=== PATIENT | male | born 1945 | race Hispanic/Latino ===

== ENCOUNTER 2017-06-25 14:18 | Emergency (ER) | payer MEDICARE, OTHER ==
[~2017-06-25] VITALS: Ht 167.6 cm; Wt 78.0 kg
[~2017-06-25 14:18] MED LIST: CHLORDIAZEPOXIDE PO; CLOZAPINE PO
[2017-06-25] MEDS ORDERED: BELLADONNA/OPIUM 60 MG SUPP PR ONE (15:30)
[2017-06-25] MEDS ORDERED: HYDROCODONE/APAP 10MG-325MG TAB PO ONE (15:30)
[2017-06-25 16:34] LABS: BILIRUBIN,URINE NEGATIVE (NEGATIVE); COLOR,URINE YELLOW (YELLOW); KETONES,URINE NEGATIVE (NEGATIVE); LEUKOCYTE ESTERASE ,URINE TRACE (NEGATIVE); NITRITE,URINE NEGATIVE (NEGATIVE); URINE UROBILINOGEN 0.2 mg/dL (0.2 - 1)
[2017-06-25 16:35] LABS: CLARITY,URINE SL CLOUDY (CLEAR); PROTEIN,URINE DIPSTICK TRACE (NEGATIVE)
[2017-06-25 16:47] LABS: BACTERIA,URINE FEW /HPF; EPITHELIAL CELLS,URINE RARE /LPF; MUCUS,URINE MODERATE (RARE)
== END 2017-06-25 18:02 | disposition home or self-care (01) ==
LOC: ER 14:18
DX: R30.0 Dysuria (principal); N32.89 Other specified disorders of bladder
CPT/HCPCS: 81001; 99283

== ENCOUNTER → 2017-07-07 | Day surgery (SDC) | payer OTHER, MEDICARE ==
[2017-07-06 12:51] LABS: BASOPHILS % 0.2 % (0.0-1.0); HEMATOCRIT 36.9 % (38.2-49.6); LYMPHOCYTES # (AUTO) 2.4 (1.0-3.2); LYMPHOCYTES % 23.2 % (18.0-39.1); MEAN CORPUSCULAR HEMOGLOBIN 28.2 pg (28-32); MEAN CORPUSCULAR VOLUME 88.1 fL (81-99); MONOCYTES % 9.2 % (4.4-11.3); NEUTROPHILS % 67.1 % (38.7-80.0); PLATELET COUNT 209 x10e3/uL (140-360); RED BLOOD COUNT 4.19 x10e6/uL (4.3-5.7)
[2017-07-06 12:53] LABS: HEMOGLOBIN 11.8 g/dL (14.0-18.0)
--- NOTE | 2017-07-06 15:38 | Diagnostic Imaging Report ---
PROCEDURE: Frontal and lateral views of the chest. COMPARISON: Patients [facility], , CHEST SINGLE (PORTABLE), 07/04/2016, 17:55. INDICATIONS: PRE OPERATIVE CHEST X-RAY FOR PROSTATE SURGERY FINDINGS: Lines/tubes: None. Lungs: The lungs are well inflated and clear. There is no evidence of pneumonia or pulmonary edema. Pleura: There is no pleural effusion or pneumothorax. Heart and mediastinum: The heart and the mediastinum are normal. Bones: No acute bony abnormality. IMPRESSION: 1. No acute cardiopulmonary abnormalities. Kory Ortega M.D. Dictated by: Kory Ortega M.D. on 07/06/2017 at 15:38 Electronically approved by: Kory Ortega M.D. on 07/06/2017 at 15:38
[~2017-07-07] MED LIST changes: +AMPICILLIN SOD 2 GM/NS 100ML 100 ML IV ONE; +BELLADONNA/OPIUM 60 MG SUPP PR ONE; +CEFUROXIME500 MG PO; +DEXAMETHASONE SOD PHOS INJ 4 MG/ML VIAL ONE; +FENTANYL CITRATE/PF 100MCG/2 ML INJ ONE; +FLOMAX0.4 MG PO; +GENTAMICIN 120MG/NS 100ML 0 ML ONE; +GENTAMICIN IV ONE; +IOPAMIDOL 610MG/1ML 300 MG/ML VIAL IV ONE; +LEVOTHYROXINE100 MCG PO; +LIDOCAINE HCL 2% LOCAL INJ 5 ML SDV VIAL INJ ONE; +LISINOPRIL10 MG PO; +LORAZEPAM1 MG PO; +METHYLENE BLUE 1% INJ 10 ML VIAL INJ ONE; +MIDAZOLAM HCL 2 MG/2 ML VIAL ONE; +ONDANSETRON HCL INJ 2 MG/ML VIAL ONE; +OXYBUTYNIN CHLOR5 MG PO; +PROPOFOL IV EMULSION 10 MG/ML 20 ML VIAL ONE; +SEVOFLURANE INHAL SOLN 250 ML PEN BTL ONE; +TYLENOL WITH C1 EACH PO; +[UNRECOGNIZED DRUG - OTHER] IV ONE
--- OUTSIDE RECORDS SUMMARY | 2017-07-07 05:11 | XMS REPORT | Continuity of Care Document ---
Author Author [facility] Organization [facility] Address [address] [place] [address] Phone Unavailable Care Team Providers Care Starch Treating Assistant Name Role Phone MARSHALL BRUNSON MD PCP Insurance Providers Guarantor Shahid Gordon Address [address] [place] [address] Email PT DECLINED [facility] Policy Number [id number] Subscriber's Name Shahid Gordon Relationship 18 Self / Same As Patient Effective Date [address] [facility] Policy Number [id number] Subscriber's Name Shahid Gordon Relationship 18 Self / Same As Patient Advance Directives Directive Response Recorded Date/Time Does the patient have an advance directive? No 02/02/12 10:53am If yes, is advance directive on file with [facility]? No 02/02/12 10:53am If not on file with [facility] will patient provide a copy? No 02/02/12 10:53am Do you have a Directive to Physician? No 06/25/17 4:27pm Do you have a Medical Power of Owner/Operator? No 06/25/17 4:27pm Do you have an out of hospital Do Not Resuscitate Order? No 06/25/17 4:27pm Do you have any special needs we should be aware of? No 06/25/17 4:27pm Do you have a support person here with you today? Yes 06/25/17 4:27pm Did patient receive Notice of Privacy Practices? Yes 06/25/17 4:27pm Did patient receive patient rights and responsibilities? Yes 06/25/17 4:27pm Problems No problem information available. Medications Current Home Medications Medication Dose Units Route Directions Days Qty Instructions Start Date Chlordiazepoxide Hcl (Librium) 10 Mg Capsule 10 Mg Oral Daily Clozapine 100 Mg Tablet 100 Mg Oral Daily Social History Smoking Status Start Date Stop Date Never Smoker Hospital Discharge Instructions No hospital discharge instruction information available. Plan of Care Discharge Date 06/25/17 6:02pm Disposition HOME, SELF-CARE Condition at Discharge Stable Instructions/Education Provided Abdominal Pain - Adult Forms Provided Work/School Excuse Prescriptions See Medication Section Referrals MARSHALL BRUNSON MD Address: [address] [place] [id number] Additional Instructions/Education FOLLOW UP WITH PCP TAKE MEDS DIRECTED Functional Status No functional status information available. Allergies, Adverse Reactions, Alerts No known allergies. Immunizations No immunization information available. Vital Signs Acute Vital Signs Vital Response Date/Time Height 5 ft 6 in 06/25/2017 3:12pm Weight 172 lb 06/25/2017 3:12pm Body Mass Index 27.8 kg/m^2 06/25/2017 3:12pm Results Laboratory Results Test Name Result Units Flags Reference Collection Date/Time Result Date/ Time Comments Urine Color YELLOW YELLOW 06/25/2017 4:18pm 06/25/2017 4:35pm Urine Clarity SL CLOUDY H CLEAR 06/25/2017 4:18pm 06/25/2017 4:35pm Urine Specific [place] 1.020 1.010-1.025 06/25/2017 4:18pm 2017 4:35pm Urine pH 6 5 - 7 06/25/2017 4:18pm 06/25/2017 4:35pm Urine Leukocyte Esterase TRACE H NEGATIVE 06/25/2017 4:18pm 2017 4:35pm Urine Nitrite NEGATIVE NEGATIVE 06/25/2017 4:18pm 06/25/2017 4:35pm Urine Protein TRACE H NEGATIVE 06/25/2017 4:18pm 06/25/2017 4:35pm Urine Glucose (UA) NEGATIVE NEGATIVE 06/25/2017 4:18pm 06/25/2017 4: 35pm Urine Ketones NEGATIVE NEGATIVE 06/25/2017 4:18pm 06/25/2017 4:35pm Urine Urobilinogen 0.2 mg/dL 0.2 - 1 06/25/2017 4:18pm 06/25/2017 4: 35pm Urine Bilirubin NEGATIVE NEGATIVE 06/25/2017 4:18pm 06/25/2017 4: 35pm Urine Blood NEGATIVE NEGATIVE 06/25/2017 4:18pm 06/25/2017 4:35pm Urine WBC 6-10 /HPF H 0-5 06/25/2017 4:18pm 06/25/2017 4:47pm Urine RBC NONE /HPF 0-5 06/25/2017 4:18pm 06/25/2017 4:47pm Urine Bacteria FEW /HPF NONE 06/25/2017 4:18pm 06/25/2017 4:47pm Urine Epithelial Cells RARE /LPF NONE 06/25/2017 4:18pm 06/25/2017 4: 47pm Urine Mucus MODERATE H RARE 06/25/2017 4:18pm 06/25/2017 4:47pm Procedures No procedure information available. Encounters Encounter Location Arrival/Admit Date Discharge/Depart Date Attending Provider Departed Emergency Room [facility] 06/25/17 2:18pm 6:02pm VAN GRIMM MD
--- OUTSIDE RECORDS SUMMARY | 2017-07-07 05:11 | XMS REPORT ---
[facility] Address Unknown Phone Unavailable Care Team Providers Care Hair Clipper Power Name Role Phone CHARO FRANCO Unavailable Unavailable Problems This patient has no known problems. Allergies, Adverse Reactions, Alerts This patient has no known allergies or adverse reactions. Medications This patient has no known medications. Results Test Description Test Time Test Comments Text Results Atomic Results Result Comments CHEST 2 VIEWS [place] [address] Patient Name: SHAHID DOYLE MR #: [id number] : 1945 Age/Sex: 71/M Req #: [id number] Adm Physician: Ordered by: CHARO FRANCO MD Report #: [id number] Location: OR Room/Bed: Procedure: [id number] DX/ CHEST 2 VIEWS Exam Date: 07/06/17 Exam Time: 1500 REPORT STATUS: Signed PROCEDURE: Frontal and lateral views of the chest. COMPARISON: [facility], DX, CHEST SINGLE (PORTABLE), 07/04/2016, 17:55. INDICATIONS: PRE OPERATIVE CHEST X-RAY FOR PROSTATE SURGERY FINDINGS: Lines/tubes: None. Lungs: The lungs are well inflated and clear. There is no evidence of pneumonia or pulmonary edema. Pleura: There is no pleural effusion or pneumothorax. Heart and mediastinum: The heart and the mediastinum are normal. Bones: No acute bony abnormality. IMPRESSION: 1. No acute cardiopulmonary abnormalities. Marshall Hassan M.D. Dictated by : Marshall Hassan M.D. on 07/06/2017 at 15:38 Electronically approved by: Marshall Hassan M.D. on 07/06/2017 at 15:38 Dictated By : MARSHALL HASSAN MD [id number] Transcribed By: KIMBERLY on 07/06/17 1538 COPY TO: CHARO FRANCO MD
--- NOTE | 2017-07-08 14:13 | Operative Report ---
DATE OF PROCEDURE: July 07, 2017 PREOPERATIVE DIAGNOSIS: Obstructive benign prostatic hypertrophy. POSTOPERATIVE DIAGNOSIS: Obstructive benign prostatic hypertrophy. OPERATIONS PERFORMED 1. Cystourethroscopy with transurethral resection of the prostate (staged procedure performed for the obstructive benign prostatic hypertrophy). 2. Interpretation of cystography. 3. Supervision of fluoroscopy, no radiologist present. ANESTHESIA: General. COMPLICATIONS: None. CLINICAL SUMMARY: Valdemar Gordon is a 71-year-old man who was found to have urinary retention. The patient has had a longstanding urinary force of stream. He had retention for over 1000 mL in the office. He did have uroflowmetry performed and did have some degree of bladder or at least voiding function. He has also had some urge incontinence and uses pads. He was also noted to have an elevated PSA in December 2016. He was also found to have a urinary tract infection in combination with his urinary obstruction and was placed on antibiotics, which he is still taking. Options were discussed with the patient and his sister and they elected to proceed. The patient also had a cystoscopy performed in the office and this revealed kissing lateral lobes with severe visual obstruction and a long prostatic urethra. The patient is brought for transurethral resection of the prostate and planned cystoscopy and retrogrades. He is aware of the risks of bleeding, infection, injury to adjacent structures, incontinence, impotence, failure of the procedure, persistent urinary retention, and he elected to proceed. OPERATIVE PROCEDURE IN DETAIL: Informed consent was verified. Valdemar Gordon was properly identified, taken to the operating room, and placed on the cystoscopy table in supine position. Anesthesia was uneventfully begun. The patient then carefully and gently repositioned in the dorsal lithotomy position with all pressure points well padded. His genitalia were prepared and draped in the usual sterile fashion. A 22.5-Arabic cystoscope sheath with visual obturator in place was atraumatically inserted in patient's urethra. It was guided down the relatively unremarkable urethra through the sphincteric region and into the prostate bed, which was significant for obstructive BPH with kissing lateral lobes. We entered the patient's bladder and it was drained. There were heavy trabeculations noted. There was a band of trabeculations that we believe is the location of interureteric ridge and we carefully and repeatedly scoped this area and could not locate the ureteral orifices. Methylene blue as well as Lasix was given by the anesthesiologist and we still did not see any methylene blue. There were no suspicious lesions. There were no stones. We utilized the plasma button electrode. The resectoscope was atraumatically placed and we proceeded with vaporizing the prostate, but never past the verumontanum and down the surgical capsule circumferentially. Excellent hemostasis was achieved with pinpoint electrocautery. We now that we have given quite a bit of time for the methylene blue with Lasix to function again performed panendoscopy several times and we were unable to locate the ureteral orifices. The resectoscope was withdrawn. Marina catheter was placed. It was irrigated to and fro to ensure work properly. Contrast was injected and we performed cystography. INTERPRETATION OF CYSTOGRAPHY: There appeared to be a diverticulum present off of the dome of the bladder and cephalad to the Marina catheter balloon. The Marina catheter balloon was within the bladder in an appropriate position. There was no evidence of vesicoureteric reflux. A belladonna and opium suppository was placed revealing a 40 g prostate that was smooth, non-fluctuant, and without any nodules and the patient was uneventfully reversed from anesthesia and taken to recovery room in stable condition. There were no complications during the procedure. He tolerated the procedure well. Explicit postoperative instructions were given. We will follow the patient up in the office, at which point in time we will perform uroflowmetry and bladder sonography. In addition, we added additional penicillin to the patient's medication milieu. Job#: [id number] VAS cc:Dr. Kory Vega
== END | disposition home or self-care (01) ==
LOC: OR 05:07
PROVIDERS: ATTEND Urology
DX: N40.1 Benign prostatic hyperplasia with lower urinary tract symptoms (principal); N13.8 Other obstructive and reflux uropathy; N39.41 Urge incontinence; R33.8 Other retention of urine; R35.1 Nocturia; R39.14 Feeling of incomplete bladder emptying; N39.0 Urinary tract infection, site not specified; N32.89 Other specified disorders of bladder; I10 Essential (primary) hypertension; E03.9 Hypothyroidism, unspecified; F20.9 Schizophrenia, unspecified; F41.9 Anxiety disorder, unspecified; Z01.810 Encounter for preprocedural cardiovascular examination; Z01.812 Encounter for preprocedural laboratory examination; Z01.818 Encounter for other preprocedural examination
CPT/HCPCS: 36415; 52648; 71046; 74430; 85025; 93005; C1758; J1100; J1580; J2001; J2250; J2405; Q9967

== ENCOUNTER → 2018-07-11 | Day surgery (SDC) | payer MEDICARE ==
[2018-07-09 14:28] LABS: BASOPHILS % 0.3 % (0.0-1.0); EOSINOPHILS # (AUTO) 0.1 (0.0-0.4); EOSINOPHILS % 1.5 % (0.0-6.0); HEMATOCRIT 42.4 % (38.2-49.6); HEMOGLOBIN 13.6 g/dL (14.0-18.0); LYMPHOCYTES # (AUTO) 2.4 (1.0-3.2); LYMPHOCYTES % 34.4 % (18.0-39.1); MEAN CORPUSCULAR HEMOGLOBIN 29.4 pg (28-32); MEAN CORPUSCULAR HGB CONC 32.1 g/dL (31-35); MEAN CORPUSCULAR VOLUME 91.6 fL (81-99); MONOCYTES # (AUTO) 0.5 (0.2-0.8); MONOCYTES % 7.7 % (4.4-11.3); NEUTROPHILS # (AUTO) 3.9 (2.1-6.9); NEUTROPHILS % 55.8 % (38.7-80.0); PLATELET COUNT 184 x10e3/uL (140-360); RED BLOOD COUNT 4.63 x10e6/uL (4.3-5.7); RED CELL DISTRIBUTION WIDTH 13.2 % (11.7-14.4)
--- NOTE | 2018-07-09 14:46 | Diagnostic Imaging Report ---
EXAMINATION: PA and lateral views of the chest. COMPARISON: 07/06/2017 CLINICAL HISTORY: Preoperative study for urological procedure DISCUSSION: Lines/tubes: None. Lungs: The lungs are well inflated and clear. There is no evidence of pneumonia or pulmonary edema. Pleura: There is no pleural effusion or pneumothorax. Heart and mediastinum: The cardiomediastinal silhouette is normal. Bones and soft tissues: No acute bony abnormalities. Degenerative changes in the thoracic spine IMPRESSION: No acute cardiopulmonary abnormalities. Signed by: Dr. Jair Bray M.D. on 07/09/2018 2:43 PM
[~2018-07-11] MED LIST changes: -AMPICILLIN SOD 2 GM/NS 100ML 100 ML IV ONE; +APPLE CIDAR VINEGAR PO; +CEFTRIAXONE SOD 1 GM/NS 50 ML 50 ML IV ONE; -DEXAMETHASONE SOD PHOS INJ 4 MG/ML VIAL ONE; -FENTANYL CITRATE/PF 100MCG/2 ML INJ ONE; -GENTAMICIN 120MG/NS 100ML 0 ML ONE; +GENTAMICIN 80MG/NS 100 ML 100 ML IV ONE; -GENTAMICIN IV ONE; +MEPERIDINE HCL INJ 25 MG/ML VIAL ONE; -METHYLENE BLUE 1% INJ 10 ML VIAL INJ ONE; -ONDANSETRON HCL INJ 2 MG/ML VIAL ONE; +ONDANSETRON HCL INJ 2MG/ML 2ML 2 MG/ML VIAL ONE; +VIT D PO; -[UNRECOGNIZED DRUG - OTHER] IV ONE
[2018-07-11 13:30] VITALS: BP 132/83
--- NOTE | 2018-08-13 17:00 | Operative Report ---
DATE OF PROCEDURE: 07/11/2018 SURGEON: Coleman Moscoso MD PREOPERATIVE DIAGNOSES: 1. Bladder neck obstruction. 2. Urinary tract infections. POSTOPERATIVE DIAGNOSES: 1. Bladder neck obstruction. 2. Urinary tract infections. OPERATION PERFORMED: 1. Cystourethroscopy with bilateral ureteral catheterization and retrograde urethrography (separate procedure performed for the urine tract infection. 2. Interpretation of retrograde ureteropyelography. 3. Supervision of fluoroscopy, no radiologist present. 4. Cystourethroscopy with transurethral resection of the bladder neck. ANESTHESIA: General. COMPLICATIONS: None. CLINICAL SUMMARY: Valdemar Gordon is a 72-year-old man, who underwent a transurethral resection of the prostate in June of 2017. The patient had a history of urinary retention. His residuals are that measured approximately 250 to 300 mL. Cystoscopy in the office revealed a bladder neck contracture. He is aware of the risks of bleeding, infection, injury to adjacent structures, need for additional procedures and elected to proceed. OPERATIVE PROCEDURE IN DETAIL: Informed consent was verified. Valdemar Gordon was properly identified and taken to the operating room, placed on the cystoscopy table in supine position. Anesthesia was uneventfully begun. The patient was then carefully gently repositioned in the dorsal lithotomy position. The left foot was well padded. His genitalia were prepared and draped in usual sterile fashion. The cystoscope sheath with the visual obturator in place was atraumatically inserted into the patient's urethra and was guided down unremarkably. Urethra passed the unremarkable sphincteric region through the prostate bed, which was wide open, status post transurethral resection of the prostate with complete re-epithelialization. There was not a contracture and scarring at the level of the bladder neck. We popped through the bladder neck into the patient's bladder, which exhibited trabeculations throughout, but no tumors, no stones, no diverticula. No suspicious mucosal lesions were identified. Ureteral catheter was used to cannulate each ureter and retrograde ureteropyelography was performed. Interpretation of retrograde ureteropyelography: Contrast was instilled in retrograde fashion bilaterally. There were no tumors, no stones, and no diverticula. Unobstructed drainage was observed bilaterally fluoroscopically. The Bugbee electrode was then utilized to vaporize the bladder neck through the scar tissue at the 5 o"clock and 7 o'clock positions. This resulted in a wide open bladder neck with excellent hemostasis. We made sure to vaporize right through the entire thickness of the scar tissue to friable non-scarred tissue below. The cystoscope was withdrawn. Marina catheter was placed. A belladonna and opium suppository were placed revealing 40 g prostate that was smooth, non-fluctuant without any nodules. The patient was then uneventfully reversed from anesthesia and taken to recovery in stable condition. There were no complications at the end of procedure. He tolerated the procedure well. Expressive postop instructions were given for the patient in the office. We will follow the patient up in the office. We plan to perform a uroflowmetry and bladder ultrasonography at that time. Coleman MD [place] /[id number] cc: Dr. Ajay Solares
== END | disposition home or self-care (01) ==
LOC: OR 09:29
PROVIDERS: ATTEND Urology
DX: N32.0 Bladder-neck obstruction (principal); N39.0 Urinary tract infection, site not specified; Z98.890 Other specified postprocedural states; N32.89 Other specified disorders of bladder; I10 Essential (primary) hypertension; F20.9 Schizophrenia, unspecified; Z01.810 Encounter for preprocedural cardiovascular examination; Z01.812 Encounter for preprocedural laboratory examination; Z01.818 Encounter for other preprocedural examination
CPT/HCPCS: 36415; 52005; 52500; 71046; 74420; 85025; 93005; C1758; J0696; J1580; J2001; J2175; J2250; J2405; J2704; Q9967

== ENCOUNTER → 2019-06-10 | Outpatient (CLI) | payer OTHER ==
[~2019-06-10] MED LIST changes: -BELLADONNA/OPIUM 60 MG SUPP PR ONE; -CEFTRIAXONE SOD 1 GM/NS 50 ML 50 ML IV ONE; -GENTAMICIN 80MG/NS 100 ML 100 ML IV ONE; -IOPAMIDOL 610MG/1ML 300 MG/ML VIAL IV ONE; -LIDOCAINE HCL 2% LOCAL INJ 5 ML SDV VIAL INJ ONE; -MEPERIDINE HCL INJ 25 MG/ML VIAL ONE; -MIDAZOLAM HCL 2 MG/2 ML VIAL ONE; -ONDANSETRON HCL INJ 2MG/ML 2ML 2 MG/ML VIAL ONE; -PROPOFOL IV EMULSION 10 MG/ML 20 ML VIAL ONE; -SEVOFLURANE INHAL SOLN 250 ML PEN BTL ONE
--- NOTE | 2019-06-10 15:26 | Diagnostic Imaging Report ---
EXAM: US ABDOMEN COMPLETE DATE: 06/10/2019 1:47 PM INDICATION: Abdominal pain COMPARISON: None TECHNIQUE: Transverse and longitudinal ross scale and color doppler sonographic images of the upper abdomen were obtained. FINDINGS: LIVER 12.8 cm in the right midclavicular line. Increased echogenicity of the liver with normal contour, no masses. SPLEEN 10.8 cm in maximum diameter. Normal echogenicity, no masses. GALLBLADDER Nonmobile 2 mm hyperechoic focus along the gallbladder wall without associated posterior acoustic shadowing likely represents a small polyp. No gallbladder wall thickening, distension, stone, or pericholecystic fluid. Negative reported sonographic Mitchell's sign. The gallbladder wall measures 2mm BILE DUCTS No intra nor extra-hepatic biliary dilation. Common bile duct measures mm PANCREAS: Visualized portions are normal. RIGHT KIDNEY: 10.3 cm Echogenicity: Normal Collecting System: No hydronephrosis Stones: None Cyst/Mass: None LEFT KIDNEY: 11.5 cm Echogenicity: Normal Collecting System: No hydronephrosis Stones: None Cyst/Mass: None VESSELS: Aorta: Visualized portions are within normal size limits Inferior Vena Cava: Visualized portions are normal Main Portal Vein: 0.8 cm, normal size with hepatopetal flow. FREE FLUID: None IMPRESSION: Diffuse hepatic steatosis. 2 mm gallbladder polyp. No cholelithiasis or sonographic evidence of cholecystitis. No renal calculi or hydronephrosis. Signed by: Calixto Maldonado MD on 06/10/2019 3:24 PM
== END ==
LOC: US 13:37
PROVIDERS: ATTEND Internal Medicine
DX: R10.84 Generalized abdominal pain (principal); K43.9 Ventral hernia without obstruction or gangrene
CPT/HCPCS: 76700

== ENCOUNTER 2019-06-11 19:18 | Inpatient (IN) | payer MEDICARE, OTHER ==
[~2019-06-11] VITALS: Ht 167.6 cm; Wt 78.2 kg
[2019-06-11] MEDS ORDERED: SODIUM CHLORIDE 0.9% 1000ML 1,000 ML IV STA (20:36)
[2019-06-11] MEDS ORDERED: MORPHINE SULFATE INJ 4 MG/ML INJ 1ML IV PRN (20:45)
[2019-06-11] MEDS ORDERED: ACETAMINOPHEN 325 MG TAB PO ONE (20:45)
[2019-06-11 21:06] LABS: BASOPHILS % 0.2 % (0.0-1.0); HEMATOCRIT 40.2 % (38.2-49.6); HEMOGLOBIN 13.1 g/dL (14.0-18.0); LYMPHOCYTES # (AUTO) 2.8 (1.0-3.2); LYMPHOCYTES % 17.2 % (18.0-39.1); MEAN CORPUSCULAR HGB CONC 32.6 g/dL (31-35); MONOCYTES # (AUTO) 1.4 (0.2-0.8); MONOCYTES % 8.3 % (4.4-11.3); NEUTROPHILS # (AUTO) 12.1 (2.1-6.9); NEUTROPHILS % 73.9 % (38.7-80.0); PLATELET COUNT 258 x10e3/uL (140-360); RED BLOOD COUNT 4.37 x10e6/uL (4.3-5.7); RED CELL DISTRIBUTION WIDTH 13.1 % (11.7-14.4)
[2019-06-11] MEDS: PIPER-TAZ 3.375 GM 50 ML IV SCH (21:13)
[2019-06-11 21:30] LABS: ALBUMIN 4.4 g/dL (3.5-5.0); ALBUMIN/GLOBULIN RATIO 1.3 (0.8-2.0); ANION GAP 15.5 mmol/L (8-16); CALCIUM 9.2 mg/dL (8.4-10.2); CREATININE, SERUM 1.39 mg/dL (0.72-1.25); POTASSIUM 3.5 mmol/L (3.5-5.1)
--- NOTE | 2019-06-11 22:29 | Diagnostic Imaging Report ---
EXAMINATION: CT of the abdomen and pelvis with contrast. TECHNIQUE: Spiral CT images of the abdomen and pelvis were performed from the lung bases to the lesser trochanters after the intravenous administration of approximately 20 cc of Isovue-370, at which point the patient's intravenous catheter extravasated. Coronal and sagittal reformatted images were obtained. COMPARISON: Abdominal ultrasound 06/10/2019 CLINICAL HISTORY:Right lower quadrant pain DISCUSSION: ABDOMEN/PELVIS: LOWER THORAX:Bandlike atelectasis or fibrotic change in the lingula and right middle lobe. No pleural or pericardial effusion. HEPATOBILIARY: Hepatic parenchyma is diffusely hypoattenuating compatible with steatosis. Subcentimeter hypoattenuating lesion in segment 5 is too small to further characterize but likely to represent a small cyst. No intra-or extrahepatic biliary ductal dilation. The gallbladder is unremarkable. SPLEEN: No splenomegaly. Small splenule adjacent to the anterior margin of the spleen. PANCREAS: No focal masses or ductal dilatation. ADRENALS: No adrenal nodules. KIDNEYS/URETERS: No hydronephrosis, calculi, or solid or cystic mass lesions. PELVIC ORGANS/BLADDER: Small diverticulum projecting from the right side of the urinary bladder. The urinary bladder is distended and otherwise unremarkable. Probable postsurgical changes of TURP. PERITONEUM/RETROPERITONEUM: No ascites or pneumoperitoneum. LYMPH NODES: No pelvic sidewall, retroperitoneal, or mesenteric lymphadenopathy. VESSELS: Focal ectasia of the infrarenal abdominal aorta to a maximum of 2.5 cm in caliber. Atherosclerotic calcifications elsewhere throughout the abdominal aorta and iliac arterial systems. GI TRACT: The large bowel shows no evidence of distention or wall thickening. Gas and fecal material is noted throughout. The appendix is not definitively identified; however, there is no right lower quadrant inflammatory change. The stomach is collapsed with prominent rugal folds. No small bowel dilatation to suggest obstruction. BONES AND SOFT TISSUE: No osseous destructive lesions. No focal soft tissue abnormalities. IMPRESSION: No acute intra-abdominal or pelvic CT abnormalities. The appendix is not identified; however, no right lower quadrant inflammation to suggest acute appendicitis. Distended urinary bladder with a small diverticulum along the right side likely a consequence of chronic bladder outlet obstruction given postsurgical findings of transurethral prostatectomy. Incidental findings include hepatic steatosis and atherosclerotic vascular disease with focal ectasia of the infrarenal abdominal aorta. Signed by: Dr. Jair Bray M.D. on 06/11/2019 10:26 PM
[2019-06-11] MEDS ORDERED: SODIUM CHLORIDE 0.9% 50ML 50 ML ONE (22:42)
[2019-06-11] MEDS ORDERED: IOPAMIDOL 370 MG/ML 200 ML INFUS..BTL INJ ONE (22:42)
[2019-06-11 23:15] VITALS: BP 113/71
--- NOTE | 2019-06-11 23:56 | NUR ---
Patient received via stretcher from ER accompanied by sister. MAURI x 3. Patient had complaints of abdominal pain (06/24). Respirations even and non-labored. Admission history obtained. Initial physical assessment performed. Patient oriented to room, call light and plan of care. Fall precautions implemented. Patient informed of NPO status after midnight and to call for assistance when needed. Call light within reach.
[2019-06-12] VITALS (7 sets, daily range): BP systolic 113–133; BP diastolic 55–73
--- NOTE | 2019-06-12 02:45 | NUR ---
Patient complained of abdominal pain (10/24). Dr. Jennie Solares notified. New order received for Morphine 1 mg Q6H PRN.
--- NOTE | 2019-06-12 03:00 | NUR ---
Blood sample sent to lab for analysis of lactic acid levels.
[2019-06-12] MEDS ORDERED: SODIUM CHLORIDE 0.9% 250ML 250 ML ONE (03:10)
[2019-06-12 03:16] LABS: BASOPHILS % 0.1 % (0.0-1.0); EOSINOPHILS # (AUTO) 0.1 (0.0-0.4); EOSINOPHILS % 0.5 % (0.0-6.0); HEMATOCRIT 32.3 % (38.2-49.6); HEMOGLOBIN 10.4 g/dL (14.0-18.0); LYMPHOCYTES # (AUTO) 2.9 (1.0-3.2); LYMPHOCYTES % 21.5 % (18.0-39.1); MEAN CORPUSCULAR HEMOGLOBIN 29.5 pg (28-32); MEAN CORPUSCULAR HGB CONC 32.2 g/dL (31-35); MEAN CORPUSCULAR VOLUME 91.5 fL (81-99); MONOCYTES # (AUTO) 1.3 (0.2-0.8); MONOCYTES % 9.3 % (4.4-11.3); NEUTROPHILS # (AUTO) 9.3 (2.1-6.9); NEUTROPHILS % 68.2 % (38.7-80.0); RED BLOOD COUNT 3.53 x10e6/uL (4.3-5.7); RED CELL DISTRIBUTION WIDTH 13.2 % (11.7-14.4)
[2019-06-12] MEDS: PIPER-TAZ 3.375 GM 50 ML IV SCH ×4 (03:17→21:41)
[2019-06-12] MEDS: MORPHINE SULFATE 2 MG/ML SYR 1ML IV PRN ×2 (03:17→09:19)
[2019-06-12 03:30] LABS: ALANINE AMINOTRANSFERASE 12 IU/L (0-55); ALBUMIN/GLOBULIN RATIO 1.2 (0.8-2.0); ALKALINE PHOSPHATASE 66 IU/L (40-150); ANION GAP 9.6 mmol/L (8-16); BLOOD UREA NITROGEN 18 mg/dL (7-26); BUN/CREATININE RATIO 16 (6-25); CARBON DIOXIDE 24 mmol/L (22-29); CHLORIDE 107 mmol/L (98-107); CREATININE, SERUM 1.15 mg/dL (0.72-1.25); EST GLOMERULAR FILTRATION RATE > 60 ML/MIN (60-); GLUCOSE 128 mg/dL (74-118); POTASSIUM 3.6 mmol/L (3.5-5.1); SODIUM 137 mmol/L (136-145)
[2019-06-12 03:33] LABS: ALBUMIN 3.1 g/dL (3.5-5.0); CALCIUM 7.5 mg/dL (8.4-10.2)
[2019-06-12 03:34] LABS: PLATELET COUNT 221 x10e3/uL (140-360)
[2019-06-12] MEDS ORDERED: FLOMAX0.4 MG PO (03:35)
[2019-06-12] MEDS ORDERED: OMEPRAZOLE40 MG PO (03:35)
[2019-06-12] MEDS ORDERED: LEVOTHYROXINE75 MCG PO (03:35)
[2019-06-12] MEDS ORDERED: LEVAQUIN500 MG PO (03:35)
--- NOTE | 2019-06-12 06:49 | NUR ---
Bed-side shift report given to oncoming nurse.
--- NOTE | 2019-06-12 07:00 | NUR ---
RECEIVED BEDSIDE SHIFT REPORT FROM ROUGE PRESSER RN. PT DENIES NEEDS AT THIS TIME.
[2019-06-12 07:29] LABS: CLARITY,URINE CLOUDY (CLEAR); COLOR,URINE YELLOW (YELLOW)
[2019-06-12 07:30] LABS: KETONES,URINE 1+ (NEGATIVE); LEUKOCYTE ESTERASE ,URINE MODERATE (NEGATIVE); NITRITE,URINE NEGATIVE (NEGATIVE); PROTEIN,URINE DIPSTICK 2+ (NEGATIVE); URINE UROBILINOGEN 1 mg/dL (0.2 - 1)
[2019-06-12 07:31] LABS: BILIRUBIN,URINE NEGATIVE (NEGATIVE)
[2019-06-12 07:45] LABS: WBC,URINE (MAN) >50 /HPF (0-5)
[2019-06-12 07:46] LABS: BACTERIA,URINE RARE /HPF; EPITHELIAL CELLS,URINE RARE /LPF; RBC,URINE 0-5 /HPF (0-5)
[2019-06-12] MEDS: ACETAMINOPHEN 325 MG TAB PO PRN (14:40)
--- NOTE | 2019-06-12 14:45 | NUR ---
Visit made by the Spiritual Care Department Pastoral Visitor, Christine Au. PV provided pastoral presence, hospitality, and supportive listening. Pastoral Visitor informed pt/family of the scope of Book[employer] Chief Services and availability. PARVIN DIXON [employer] Management Professor Spiritual Care Department O: [phone]
--- NOTE | 2019-06-12 16:33 | History and Physical ---
CHIEF COMPLAINT: He is a 73-year-old male patient of mine, presented to the emergency room with a complaint of abdominal pain and fever. HISTORY OF PRESENT ILLNESS: Mr. Heidi Aldrich is a 73-year-old male patient with history of psychosis, schizophrenia, hypertension, hypothyroidism, and previous prostatic problem. Presented as outpatient earlier with the lower abdominal pain and patient was sent for the renal ultrasound and given antibiotics, but the patient was not improving and the patient was having more pain. The patient then came to the emergency room and subsequently the patient was admitted because of the sepsis. The patient was given outpatient Levaquin. MEDICATIONS: Other medication history the patient was on levothyroxine, lisinopril, lorazepam, omeprazole, tamsulosin and clozapine. ALLERGIES: NO KNOWN DRUG ALLERGIES. PAST MEDICAL HISTORY: Hypertension, hypothyroidism, UTI, schizophrenia. SOCIAL HISTORY: Denies smoking. Denies using alcohol. REVIEW OF SYSTEMS: The patient complained of lower abdominal pain. The patient is a poor historian and not able to give any detailed review of system examination. PHYSICAL EXAMINATION: GENERAL: He is an elderly male patient lying in bed, not in any acute distress. VITAL SIGNS: Temperature 99, pulse rate 88, blood pressure 138/64. Respiration rate 20. HEENT: Normocephalic, atraumatic. NECK: No JVD. No lymphadenopathy. LUNGS: Bilateral equal fair entry. No rales. No rhonchi. HEART: S1, S2 regular. ABDOMEN: Soft. Bowel sounds present. Lower abdomen mild tenderness present. NEUROLOGIC: A and O. EXTREMITIES: No edema. LABORATORY DATA: Revealed white blood count 16,000. ADMITTING IMPRESSION DIAGNOSES: 1. Urinary tract infection with sepsis. 2. Urosepsis. 3. Hypertension. 4. Hyperlipidemia. 5. Hypothyroidism. 6. Arthritis. 7. Schizophrenia. PLAN: The patient will be admitted with above diagnoses. We will treat patient with IV antibiotic Zosyn. We will discontinue morphine that was given by the emergency room. MD DIANE Morgan/[facility] /[id number]
--- NOTE | 2019-06-12 16:50 | NUR ---
BLADDER SCAN REVEALED 400 ML RESIDUAL POST VOID.
--- NOTE | 2019-06-12 16:53 | NUR ---
REYES CATHETER INSERTED USING 18 GREEK COUDEA. PT TOLERATED. REYES DRAINING TO BEDSIDE BAG. Addendum: 06/13/19 at 0921 by Humberto Taveras RN POST PLACEMENT URINE WAS MEASURED AT 780ML.
[2019-06-12] MEDS: NON-FORMULARY MEDICATION (Clozapine 200 MG) PO SCH (21:00)
[2019-06-12] MEDS: LORAZEPAM 1 MG TAB PO SCH (21:42)
[2019-06-12] MEDS: TAMSULOSIN HCL 0.4 MG CAP PO SCH (21:42)
[2019-06-13] VITALS (8 sets, daily range): BP systolic 102–153; BP diastolic 62–79
[2019-06-13] MEDS: PIPER-TAZ 3.375 GM 50 ML IV SCH ×4 (03:15→20:21)
[2019-06-13 05:10] LABS: BASOPHILS % 0.2 % (0.0-1.0); HEMATOCRIT 32.2 % (38.2-49.6); HEMOGLOBIN 10.4 g/dL (14.0-18.0); LYMPHOCYTES % 18.4 % (18.0-39.1); MEAN CORPUSCULAR HEMOGLOBIN 29.6 pg (28-32); MEAN CORPUSCULAR HGB CONC 32.3 g/dL (31-35); MEAN CORPUSCULAR VOLUME 91.7 fL (81-99); MONOCYTES # (AUTO) 0.9 (0.2-0.8); MONOCYTES % 8.4 % (4.4-11.3); NEUTROPHILS # (AUTO) 7.9 (2.1-6.9); NEUTROPHILS % 72.7 % (38.7-80.0); PLATELET COUNT 257 x10e3/uL (140-360); RED BLOOD COUNT 3.51 x10e6/uL (4.3-5.7); RED CELL DISTRIBUTION WIDTH 13.2 % (11.7-14.4)
[2019-06-13 05:32] LABS: ALANINE AMINOTRANSFERASE 14 IU/L (0-55); ALKALINE PHOSPHATASE 67 IU/L (40-150); ANION GAP 9.5 mmol/L (8-16); BLOOD UREA NITROGEN 19 mg/dL (7-26); BUN/CREATININE RATIO 18 (6-25); CALCIUM 7.8 mg/dL (8.4-10.2); CARBON DIOXIDE 22 mmol/L (22-29); CHLORIDE 106 mmol/L (98-107); CREATININE, SERUM 1.05 mg/dL (0.72-1.25); EST GLOMERULAR FILTRATION RATE > 60 ML/MIN (60-); GLUCOSE 124 mg/dL (74-118); POTASSIUM 3.5 mmol/L (3.5-5.1); SODIUM 134 mmol/L (136-145)
[2019-06-13] MEDS: LEVOTHYROXINE SODIUM 75 MCG TAB PO SCH (06:10)
--- NOTE | 2019-06-13 07:00 | NUR ---
RECEIVED BEDSIDE SHIFT REPORT FROM YARN REWINDER RN. PT DENIES NEEDS AT THIS TIME.
[2019-06-13] MEDS: LISINOPRIL 10 MG TAB PO SCH (08:37)
[2019-06-13] MEDS: PANTOPRAZOLE SOD 40 MG TABEC PO SCH (08:38)
[2019-06-13] MEDS ORDERED: POTASSIUM CHLORIDE 10MEQ EA PO NR (18:30)
[2019-06-13] MEDS: NON-FORMULARY MEDICATION (Clozapine 200 MG) PO SCH (20:21)
[2019-06-13] MEDS: TAMSULOSIN HCL 0.4 MG CAP PO SCH (20:22)
[2019-06-13] MEDS: ACETAMINOPHEN 325 MG TAB PO PRN (20:22)
[2019-06-13] MEDS: LORAZEPAM 1 MG TAB PO SCH (20:22)
[2019-06-14] VITALS: BP 108/56
[2019-06-14] MEDS: PIPER-TAZ 3.375 GM 50 ML IV SCH ×2 (03:15→09:17)
[2019-06-14 04:00] VITALS: BP 94/52
[2019-06-14] MEDS: LEVOTHYROXINE SODIUM 75 MCG TAB PO SCH (05:42)
[2019-06-14 06:22] LABS: ANION GAP 8.8 mmol/L (8-16); BLOOD UREA NITROGEN 16 mg/dL (7-26); BUN/CREATININE RATIO 15 (6-25); CARBON DIOXIDE 26 mmol/L (22-29); CHLORIDE 108 mmol/L (98-107); CREATININE, SERUM 1.06 mg/dL (0.72-1.25); EST GLOMERULAR FILTRATION RATE > 60 ML/MIN (60-); GLUCOSE 111 mg/dL (74-118); POTASSIUM 3.8 mmol/L (3.5-5.1); SODIUM 139 mmol/L (136-145)
--- NOTE | 2019-06-14 07:00 | NUR ---
BEDSIDE SHIFT REPORT RECEIVED FROM THE SPRAYER INSECTICIDE RN. EDUCATED PT ABOUT FALL PRECAUTIONS. PT VERBALIZED UNDERSTANDING. CALL LIGHT WITH IN EASY REACH. INSTRUCTED PT TO USE CALL LIGHT FOR ALL THE NEEDS. BED IS LOW AND LOCKED. SIDE RAILS X2. BED ALARM IS ON. PT DENIES NEEDS AT THIS TIME.
[2019-06-14 08:00] VITALS: BP 116/53
[2019-06-14 08:36] VITALS: BP 116/53
--- NOTE | 2019-06-14 09:00 | NUR ---
REYES CARE PERFORMED. FAMILY MEMBER AT BEDSIDE.
[2019-06-14] MEDS: PANTOPRAZOLE SOD 40 MG TABEC PO SCH (09:21)
[2019-06-14] MEDS: LISINOPRIL 10 MG TAB PO SCH (09:21)
--- NOTE | 2019-06-14 09:55 | NUR ---
SWELLING ON TIP OF PENIS NOTED. INFORMED THE SAME TO DR. MASSEY AT BEDSIDE.
--- NOTE | 2019-06-14 10:30 | NUR ---
D/C PT AFTER HOME HEALTH SET UP PER DR. Santana PATEL. INFORMED THE SAME TO CASE MANAGEMENT.
--- NOTE | 2019-06-14 11:56 | NUR ---
MET W THE PT AND SISTERS AT THE BEDSIDE TO DISCUSS DC HOME W HH. PT STATES A NURS COMES FROM HIS INSURANCE, [facility], OCCASIONALLY. STATES HE HAS NOT HAD HH IN THE PAST. CHOICE WAS PROVIDED; [facility]. STATES [facility] WAS OK TO USE. REFERRAL FAXED TO [facility] @ OFF: [phone] / FAX: [phone]
[2019-06-14 12:00] VITALS: BP 117/66
[2019-06-14] MEDS ORDERED: TYLENOL WITH C1 EACH PO (12:02)
[2019-06-14] MEDS ORDERED: AUGMENTIN 875-1 EACH PO (12:04)
[2019-06-14] MEDS ORDERED: MUPIROCIN22 GM TOP (12:04)
--- NOTE | 2019-06-14 12:05 | NUR ---
HOME HEALTH DISCHARGE NOTE PATIENT ADDRESS WHERE SERVICE WILL BE RECEIVED: [facility] [place] [address] PATIENT CONTACT NUMBER: [phone] NAME OF HOME HEALTH COMPANY: [employer] TELEPHONE/FAX NUMBER OF COMPANY: [phone] / FAX: [phone] SERVICES TO RECEIVE: NURSING HOME EVAL AND TREAT, [facility] C[facility]/MANAGEMENT ANTICIPATED DATE SERVICES WILL BEGIN: 06/16/2019 Please call the company above if you have not received a call to schedule a home visit within 24 hours of discharge.
--- NOTE | 2019-06-14 12:09 | NUR ---
MEHUL TO D/C PT PER CASE MANAGEMENT. D/C WITH [facility] PER DR. Santana PATEL.
--- NOTE | 2019-06-14 12:31 | NUR ---
REYES CATHETER TEACHING GIVEN TO THE PT AND FAMILY MEMBER AT BEDSIDE. PT AND FAMILY MEMBER VERBALIZED UNDERSTANDING. LEG BAG AND REYES BAG GIVEN. PT AND FAMILY DENIED FURTHER NEEDS.
--- NOTE | 2019-06-14 12:50 | NUR ---
PT DISCHARGED HOME SAFELY WITH FAMILY MEMBER. TELEMETRY AND IV REMOVED, TIP INTACT. DRESSING APPLIED. REYES CARE TEACHING GIVEN. LEG BAG PLACED. PT D/C WITH REYES PER DR. Santana PATEL. RX GIVEN. DISCHARGE INSTRUCTIONS GIVEN AND PATIENT VERBALIZED UNDERSTANDING. PT ESCORTED VIA WHEEL CHAIR WITH THE TECH TO THE PRIVATE AUTO AT THE FRONT ENTRANCE. PT DENIED FURTHER NEEDS.
--- NOTE | 2019-06-15 03:58 | Discharge Summary ---
He is a 73-year-old male patient of mine who entered into the emergency room with abdominal pain. Admitting impression diagnoses UTI with sepsis and the patient has obstructive uropathy and the patient has a urinary retention, BPH, schizophrenia and overactive bladder and the patient also has a paraphimosis and hypotonic bladder with required Marina catheterization. The patient has been admitted with above diagnosis, treated with IV antibiotic Zosyn. The patient was given morphine p.r.n. for pain, which then was discontinued and changed to the Tylenol and the patient had improved significantly and the patient has a Urology consultation done by Dr. Moscoso and now upon stabilization the patient will be discharged home on oral antibiotic and Augmentin and the patient does need a Marina catheter as outpatient. The patient will be discharged home with home health care for the Marina catheter and the patient was advised to follow up with me as well as Dr. Moscoso as outpatient and we will also recommend the patient for ointment in the penile area and warm compression for the swelling. MD DIANE Morgan/[place] /[id number]
== END 2019-06-14 12:50 | disposition home or self-care (01) | DRG 872 ==
LOC: ER 19:18 → ERHOLD 22:32 → MED/SURG2 23:17
PROVIDERS: ADMIT Internal Medicine; ATTEND Internal Medicine
DX: A41.9 Sepsis, unspecified organism (principal); N39.0 Urinary tract infection, site not specified; N13.8 Other obstructive and reflux uropathy; I10 Essential (primary) hypertension; E78.5 Hyperlipidemia, unspecified; E03.9 Hypothyroidism, unspecified; M19.90 Unspecified osteoarthritis, unspecified site; F20.9 Schizophrenia, unspecified; N40.1 Benign prostatic hyperplasia with lower urinary tract symptoms; N31.2 Flaccid neuropathic bladder, not elsewhere classified; N47.1 Phimosis; E87.6 Hypokalemia; R33.8 Other retention of urine
CPT/HCPCS: 36415; 74177; 76700; 80048; 80053; 81001; 82550; 82553; 83605; 84484; 85025; 87040; 87086; 93005; 99284; J2270; J2543; J7030; J7050; Q9967

== ENCOUNTER 2019-08-12 23:27 | Emergency (ER) | payer MEDICARE, OTHER ==
[~2019-08-12] VITALS: Ht 167.6 cm; Wt 78.0 kg
[~2019-08-12 23:27] MED LIST changes: +AUGMENTIN 875-1 EACH PO; +LEVAQUIN500 MG PO; +LEVOTHYROXINE75 MCG PO; +MUPIROCIN22 GM TOP; +OMEPRAZOLE40 MG PO
[2019-08-13] MEDS ORDERED: CEFDINIR300 MG PO (00:22)
[2019-08-13] MEDS ORDERED: PHENAZOPYRIDIN100 MG PO (00:26)
[2019-08-15] MEDS ORDERED: ATIVAN0.5 MG PO (16:50)
[2019-08-15] MEDS ORDERED: PHENAZOPYRIDIN200 MG PO (16:51)
== END 2019-08-13 00:53 | disposition home or self-care (01) ==
LOC: FSED 23:27
DX: R30.0 Dysuria (principal); N30.91 Cystitis, unspecified with hematuria; N40.0 Benign prostatic hyperplasia without lower urinary tract symptoms; I10 Essential (primary) hypertension; F20.5 Residual schizophrenia
CPT/HCPCS: 81003; 87086; 87186; 99283

== ENCOUNTER 2019-08-21 09:55 | Inpatient (IN) | payer MEDICARE, OTHER ==
[2019-08-16 14:31] LABS: BASOPHILS % 0.4 % (0.0-1.0); HEMATOCRIT 39.1 % (38.2-49.6); HEMOGLOBIN 12.6 g/dL (14.0-18.0); LYMPHOCYTES # (AUTO) 2.6 (1.0-3.2); LYMPHOCYTES % 36.7 % (18.0-39.1); MEAN CORPUSCULAR HEMOGLOBIN 29.2 pg (28-32); MEAN CORPUSCULAR HGB CONC 32.2 g/dL (31-35); MEAN CORPUSCULAR VOLUME 90.5 fL (81-99); MONOCYTES # (AUTO) 0.5 (0.2-0.8); MONOCYTES % 7.5 % (4.4-11.3); NEUTROPHILS # (AUTO) 3.9 (2.1-6.9); PLATELET COUNT 186 x10e3/uL (140-360); RED BLOOD COUNT 4.32 x10e6/uL (4.3-5.7); RED CELL DISTRIBUTION WIDTH 13.7 % (11.7-14.4)
--- NOTE | 2019-08-16 15:23 | Diagnostic Imaging Report ---
EXAMINATION: CHEST 2 VIEWS INDICATION: Pre-operative COMPARISON: Chest radiograph 07/09/2018 FINDINGS: LINES/TUBES:None LUNGS:The lungs are well-inflated. No focal consolidation or pulmonary edema. PLEURA:No pleural effusion or pneumothorax. MEDIASTINUM:The cardiomediastinal silhouette appears normal in size and shape. BONES/SOFT TISSUES:No acute osseous injury. ABDOMEN:No free air under the diaphragm. IMPRESSION: No focal pneumonia or pulmonary edema. Signed by: Calixto Maldonado MD on 08/16/2019 3:19 PM
[~2019-08-21] VITALS: Ht 170.2 cm; Wt 77.1 kg
[~2019-08-21 09:55] MED LIST changes: +ATIVAN0.5 MG PO; +CEFDINIR300 MG PO; +PHENAZOPYRIDIN100 MG PO; +PHENAZOPYRIDIN200 MG PO
[2019-08-21] MEDS ORDERED: CEFTRIAXONE SOD 1 GM/NS 50 ML 50 ML IV ONE (10:34)
[2019-08-21] MEDS ORDERED: GENTAMICIN 80MG/NS 100 ML 200 ML IV ONE (10:35)
[2019-08-21] MEDS ORDERED: B&O 60MG R/S 60 MG SUPP PR ONE (11:26)
[2019-08-21] MEDS ORDERED: IOPAMIDOL 300MG/ML 50ML INFUS..BTL IV ONE (11:26)
[2019-08-21] MEDS ORDERED: ONDANSETRON HCL INJ 2MG/ML 2ML 2 MG/ML VIAL IV PRN (12:30)
[2019-08-21] MEDS ORDERED: B&O 60MG R/S 60 MG SUPP PR PRN (12:30)
[2019-08-21] MEDS: CEFTRIAXONE SOD 1 GM/NS 50 ML 50 ML IV SCH (12:30)
[2019-08-21] MEDS ORDERED: DIPHENHYDRAMINE HCL 25 MG CAP PO PRN ×2 (12:30→21:00)
[2019-08-21] MEDS ORDERED: ACETAMINOPHEN 1000 MG/100 ML IV PRN (12:30)
[2019-08-21] MEDS ORDERED: ACETAMINOPHEN/CODEINE 300MG - 30MG TAB PO PRN (12:30)
[2019-08-21] MEDS: PHENAZOPYRIDINE HCL 100 MG TAB PO SCH ×2 (13:00→17:29)
[2019-08-21] MEDS ORDERED: FENTANYL CITRATE/PF 100MCG/2 ML INJ ONE ×2 (13:42→14:17)
[2019-08-21] MEDS ORDERED: MEPERIDINE HCL INJ 25 MG/ML VIAL ONE (13:45)
[2019-08-21] MEDS ORDERED: MIDAZOLAM HCL 2 MG/2 ML VIAL ONE (14:17)
[2019-08-21 14:33] LABS: ANION GAP 13.1 mmol/L (8-16); BLOOD UREA NITROGEN 14 mg/dL (7-26); BUN/CREATININE RATIO 12 (6-25); CALCIUM 7.9 mg/dL (8.4-10.2); CARBON DIOXIDE 24 mmol/L (22-29); CHLORIDE 109 mmol/L (98-107); CREATININE, SERUM 1.17 mg/dL (0.72-1.25); EST GLOMERULAR FILTRATION RATE > 60 ML/MIN (60-); GLUCOSE 116 mg/dL (74-118); SODIUM 141 mmol/L (136-145)
[2019-08-21 14:36] LABS: POTASSIUM 5.1 mmol/L (3.5-5.1)
[2019-08-21] MEDS ORDERED: HYDROMORPHONE 1MG/1ML INJ ONE (15:04)
[2019-08-21 16:00] LABS: BASOPHILS % 0.2 % (0.0-1.0); HEMATOCRIT 37.1 % (38.2-49.6); HEMOGLOBIN 11.3 g/dL (14.0-18.0); LYMPHOCYTES # (AUTO) 2.2 (1.0-3.2); LYMPHOCYTES % 18.2 % (18.0-39.1); MEAN CORPUSCULAR HEMOGLOBIN 28.3 pg (28-32); MEAN CORPUSCULAR HGB CONC 30.5 g/dL (31-35); MEAN CORPUSCULAR VOLUME 92.8 fL (81-99); MONOCYTES # (AUTO) 0.4 (0.2-0.8); MONOCYTES % 3.6 % (4.4-11.3); NEUTROPHILS # (AUTO) 9.5 (2.1-6.9); NEUTROPHILS % 77.7 % (38.7-80.0); PLATELET COUNT 186 x10e3/uL (140-360); RED CELL DISTRIBUTION WIDTH 13.6 % (11.7-14.4)
--- NOTE | 2019-08-21 16:23 | NUR ---
RECEIVED PATIENT FROM OR. PATIENT A/O X3, EVEN RESPIRATIONS ON RA. LUNG SOUNDS CLEAR. CBI WITH HEMATURIA STRAW COLOR URINE. SHAHNAZ HOSE AND SCD'S IN PLACE. PATIENT DENIES PAIN AT THIS TIME. RIGHT HAND 20 GAUGE IV WITH IVF @ 125 CC/HR. CALL LIGHT IN REACH WILL CONTINUE TO MONITOR PATIENT.
[2019-08-21 16:42] VITALS: BP 157/83
[2019-08-21] MEDS ORDERED: DOCUSATE SODIUM 100 MG CAP PO SCH (17:00)
[2019-08-21] MEDS: D5.45%NS/KCL 20MEQ 1,000 ML IV SCH ×2 (17:29→20:30)
[2019-08-21 17:38] VITALS: BP 157/83
--- NOTE | 2019-08-21 18:25 | NUR ---
SPOKE WITH DR. TERRA HERNÁNDEZ TO CONTINUE HOME MEDICATIONS. NEW ORDERS IMPLEMENTED.
--- NOTE | 2019-08-21 18:41 | NUR ---
NOTIFIED PATIENT THAT PHARMACY DOES NOT HAVE CLOZAPINE MEDICATION. PATIENT CALLED SISTER TO BRING MEDICATION FROM HOME.
[2019-08-21] MEDS ORDERED: EPHEDRINE SULFATE INJ 50 MG/ML VIAL ONE (19:52)
[2019-08-21] MEDS ORDERED: ONDANSETRON HCL INJ 2MG/ML 2ML 2 MG/ML VIAL ONE (19:52)
[2019-08-21] MEDS ORDERED: DEXAMETHASONE SOD PHOS INJ 4 MG/ML VIAL ONE (19:52)
[2019-08-21] MEDS ORDERED: LIDOCAINE HCL 2% LOCAL INJ 5 ML SDV VIAL INJ ONE (19:52)
[2019-08-21] MEDS ORDERED: SEVOFLURANE INHAL SOLN 250 ML PEN BTL ONE (19:52)
[2019-08-21] MEDS ORDERED: PROPOFOL IV EMULSION 10 MG/ML 20 ML VIAL ONE (19:52)
[2019-08-21 20:00] VITALS: BP 111/68
[2019-08-21] MEDS: NON-FORMULARY MEDICATION (Clozapine 200 MG) PO SCH (20:10)
[2019-08-21 20:35] VITALS: BP 157/83
--- NOTE | 2019-08-21 20:35 | NUR ---
PATIENT RESTING IN BED AOX4, NO SIGNS OF DISTRESS NOTED. IV FLUIDS ARE RUNNING AT ORDERED RATE AND PATIENT VOICES NO PAIN AT THIS TIME. CONTINUOUS BLADDER IRRIGATION IS CURRENTLY IN USE AND IS PATENT AND FLOWING. REYES BAG HAS CLEAR YELLOW COLORED URINE. BED IS IN LOWEST POSITION, BOTH SIDE RAILS ARE UP, CALL LIGHT IS WITHIN EASY REACH, WILL CONTINUE TO MONITOR.
[2019-08-21] MEDS: LORAZEPAM 0.5 MG TAB PO SCH (20:41)
[2019-08-21] MEDS ORDERED: DOCUSATE SODIUM 100 MG CAP PO PRN (21:00)
[2019-08-21] MEDS ORDERED: HYDROCODONE/APAP 5MG-325MG TAB PO PRN (21:00)
[2019-08-21] MEDS ORDERED: HYDRALAZINE HCL 20 MG/ML VIAL IV PRN (21:00)
[2019-08-21] MEDS: SODIUM CHLORIDE 0.9% 1000ML 1,000 ML IV SCH (22:19)
[2019-08-22] VITALS (8 sets, daily range): BP systolic 100–145; BP diastolic 63–74
--- NOTE | 2019-08-22 02:11 | Operative Report ---
DATE OF PROCEDURE: 08/21/2019 SURGEON: Coleman Moscoso MD PREOPERATIVE DIAGNOSES: 1. Obstructive BPH. 2. Complicated urinary tract infections. POSTOPERATIVE DIAGNOSES: 1. Obstructive BPH. 2. Complicated urinary tract infections. OPERATIONS PERFORMED: 1. Cystourethroscopy with bilateral ureteral catheterization and retrograde ureteropyelography (separate procedure performed for the urinary tract infections). 2. Interpretation of retrograde ureteropyelography. 3. Supervision of fluoroscopy, no radiologist present. 4. Cystourethroscopy with transurethral resection of the prostate (second stage procedure performed for the patient's BPH in hopes of allowing the patient to void without needing chronic catheterization. Should he fail this attempt, he will most likely be condemned to lifelong suprapubic cystostomy. He and his sister are aware of the risks of bleeding, infection, injury to adjacent structures, need for additional procedures, and failure of the procedure. They elected to proceed). 5. This procedure was performed during COVID-19 emergency as this is not elective. The patient has a chronic Marina catheter with recurrent infections and ongoing infections pose a risk to this patient. The patient has had complicated infections requiring admission, so therefore, this procedure is hardly elective. OPERATIVE PROCEDURE IN DETAIL: Informed consent was verified. Valdemar Gordon was properly identified, taken to the operating room, placed on the cystoscopy table in supine position. Anesthesia was uneventfully begun. The patient was then carefully and gently repositioned in the dorsal lithotomy position with all pressure points well padded. His genitalia were prepared and draped in usual sterile fashion. The 22.5-Greenlandic cystoscope sheath with a visual obturator in place was atraumatically inserted into the patient's urethra. It was guided unremarkable distal urethra through normal sphincteric region through the prostate bed, which was significant for being relatively open having been operated on before, but there was minimal amount of residual tissue noted around the apical region, mostly. We entered the patient's bladder. Panendoscopy revealed chronic cystitis, but no suspicious lesions. Heavy trabeculations were noted. Ureteral catheter was used to cannulate each ureter and retrograde ureteropyelograms were performed. Interpretation of retrograde ureteropyelography contrast was instilled in retrograde fashion bilaterally. There were no tumors, no stones, no diverticula. Unobstructed drainage was observed bilaterally fluoroscopically. Ureteral tortuosity was noted bilaterally. Transurethral resection of the prostate was then carried out from the bladder neck tube, but never passed the verumontanum and down the surgical capsule. Pinpoint electrocautery was utilized to control actively bleeding blood vessels. Excellent hemostasis was achieved. All chips were evacuated. This procedure is truly a complete transurethral resection of the prostate. No additional TURP is required nor indicated in this patient. Should the patient persist to fail to void, he would require a suprapubic cystostomy, which will most likely end up being a life sentence. The patient's bladder was drained following evacuation of all chips. A continuous irrigation Marina catheter was then placed. It was irrigated to and fro to ensure it worked properly. It was placed on continuous irrigation. Belladonna and opium suppository was placed revealing a large prostate, smooth and non-fluctuant, without any nodules. The patient was then uneventfully reversed from anesthesia and taken to recovery room in stable condition. There were no complications to the procedure. He tolerated the procedure well. We will proceed with routine postoperative care and we will hope that this procedure will allow the patient to void. Coleman Moscoso MD [place]/MODL /[id number] cc: Dr. Ajay Solares
--- NOTE | 2019-08-22 04:21 | History and Physical ---
CHIEF COMPLAINT: Status post TURP. HISTORY OF PRESENT ILLNESS: A 73-year-old male with history of schizophrenia, hypertension, hypothyroidism, came in for an elective procedure, in which he underwent status post cystoscopy with retrograde pyelogram, also underlying status post TURP due to enlargement of the prostate. The patient did well postprocedurally with no issues. He is currently doing well with no complaints. No evidence of any hematuria. He has a CBI in place. Denies any chest pain, palpitation, nausea, or vomiting. The patient is seen and evaluated at bedside on the medical floor. He is currently doing well with no other issues at this time. REVIEW OF SYSTEMS: Pertinent positives: Just enlargement of the prostate. No other issues. The rest of 14-point review of systems are reviewed with the patient and are negative. ALLERGIES: NO KNOWN DRUG ALLERGIES. HOME MEDICATIONS: He takes: 1. Clozapine 200 mg at bedtime. 2. Levothyroxine 75 mcg daily. 3. Lisinopril 10 mg daily. 4. Lorazepam 0.5 mg at bedtime schedule. PAST MEDICAL HISTORY: He has history of BPH, hypothyroidism, hypertension, schizophrenia. PAST SURGICAL HISTORY: He recently underwent status post TURP procedure today 08/21/2019. FAMILY HISTORY: Hypertension and diabetes. SOCIAL HISTORY: No drugs. No alcohol. Does not smoke. Good social support. He is . PHYSICAL EXAMINATION: VITAL SIGNS: Temperature is 96.4, pulse 75, respiratory rate is 20, blood pressure is 157/83, pulse ox 97% on room air. GENERAL: Not in acute distress. Alert and oriented x3. Cooperative on examination. HEENT: Head; normocephalic, atraumatic. Eyes; pupils are equal, round, and reactive to light bilaterally. Extraocular movements intact bilaterally. Throat; no evidence of erythema or exudates in the posterior pharynx. Has poor dentition. NECK: Supple. Good range of motion. PULMONARY: Clear to auscultation bilaterally. No wheezing, no rales, no rhonchi, no crackles appreciated. CARDIOVASCULAR: Positive S1 and S2. No murmurs, rubs, or gallops appreciated. ABDOMEN: Soft, nondistended, and nontender to palpation. Bowel sounds present. MUSCULOSKELETAL: Strength is 5/5 throughout. No evidence of any muscle deficits on examination. NEUROLOGIC: Alert and oriented x3. No neurological deficits seen on exam. SKIN: Intact. Warm to touch. Good cap refill. EXTREMITIES: No edema. Good range of motion throughout. LABORATORY DATA: Laboratory findings show his white count today is 12, hemoglobin 11.3, hematocrit is 37, platelets of 186. Chemistry; sodium 141, potassium 5.1, chloride 109, bicarb 24, anion gap of 13, BUN is 14, creatinine is 1.1, glucose 116, point of care glucose 192, calcium 7.9, magnesium 1.7. Coronavirus PCR negative. MICROBIOLOGY: None. IMAGING STUDIES: None. IMPRESSION: 1. Cystoscopy, status post transurethral resection of prostate procedure. 2. History of schizophrenia. 3. Hypertension. 4. Hypothyroidism. PLAN: At this time, the patient underwent elective TURP performed by Dr. Moscoso today. He is on a continuous bladder irrigation. No evidence of any hematuria. His hemoglobin is stable. We will continue following with Urology recommendations. We will hold anticoagulation for now to avoid any hematuria and possibly tomorrow restart some anticoagulation. Resume same antihypertensive medications. Resume his clozapine as well as his Ativan at bedtime. He is on a regular diet. Encourage ambulation. Put PT, OT evaluation. Await for final recommendation by Urology for discharge planning. MD BOUCHRA Allison/MODL /[id number]
[2019-08-22] MEDS: LEVOTHYROXINE SODIUM 75 MCG TAB PO SCH (05:29)
[2019-08-22 05:58] LABS: BASOPHILS % 0.1 % (0.0-1.0); HEMATOCRIT 37.7 % (38.2-49.6); LYMPHOCYTES # (AUTO) 2.1 (1.0-3.2); LYMPHOCYTES % 19.4 % (18.0-39.1); MEAN CORPUSCULAR HEMOGLOBIN 28.7 pg (28-32); MEAN CORPUSCULAR HGB CONC 31.8 g/dL (31-35); MEAN CORPUSCULAR VOLUME 90.2 fL (81-99); MONOCYTES # (AUTO) 0.6 (0.2-0.8); MONOCYTES % 5.1 % (4.4-11.3); NEUTROPHILS # (AUTO) 8.2 (2.1-6.9); NEUTROPHILS % 75.1 % (38.7-80.0); PLATELET COUNT 195 x10e3/uL (140-360); RED BLOOD COUNT 4.18 x10e6/uL (4.3-5.7); RED CELL DISTRIBUTION WIDTH 13.4 % (11.7-14.4)
[2019-08-22 06:39] LABS: ANION GAP 16.1 mmol/L (8-16); BLOOD UREA NITROGEN 13 mg/dL (7-26); BUN/CREATININE RATIO 12 (6-25); CALCIUM 8.5 mg/dL (8.4-10.2); CARBON DIOXIDE 21 mmol/L (22-29); CHLORIDE 109 mmol/L (98-107); CREATININE, SERUM 1.13 mg/dL (0.72-1.25); EST GLOMERULAR FILTRATION RATE > 60 ML/MIN (60-); GLUCOSE 134 mg/dL (74-118); POTASSIUM 4.1 mmol/L (3.5-5.1); SODIUM 142 mmol/L (136-145)
--- NOTE | 2019-08-22 07:00 | NUR ---
RECEIVED PATIENT AWAKE RESTING IN BED NO S/S OF DISTRESS. BED LOW, WHEELS LOCKED, SIDE RAILS X2. CALL LIGHT IN REACH WILL CONTINUE TO MONITOR PATIENT.
[2019-08-22] MEDS: LISINOPRIL 10 MG TAB PO SCH (07:53)
[2019-08-22] MEDS: PHENAZOPYRIDINE HCL 100 MG TAB PO SCH ×3 (07:53→17:24)
[2019-08-22] MEDS: SODIUM CHLORIDE 0.9% 1000ML 1,000 ML IV SCH ×2 (10:04→23:18)
[2019-08-22] MEDS: CEFTRIAXONE SOD 1 GM/NS 50 ML 50 ML IV SCH (12:06)
--- NOTE | 2019-08-22 17:24 | Progress Note ---
DATE: 08/22/2019 Medicine Progress Note SUBJECTIVE: The patient doing well today with no complaints. Continues to have a CBI. No evidence of any hematuria. He is alert, awake, and oriented during my examination. Nurse was present during this interview with the patient. PHYSICAL EXAMINATION: VITAL SIGNS: Temperature is 96.3, pulse 79, respiratory rate is 18, blood pressure 107/64, and pulse ox 97% on room air. GENERAL: Not in acute distress, alert and oriented x3. Cooperative on examination. HEENT: Head is normocephalic, atraumatic. Eyes; pupils are reactive to light bilaterally. PULMONARY: Clear to auscultation bilaterally. No wheezing, no rales, no rhonchi, no crackles appreciated. CARDIOVASCULAR: Positive S1 and S2. No murmurs, rubs, or gallops appreciated. ABDOMEN: Soft, nondistended, and nontender to palpation. Bowel sounds present. MUSCULOSKELETAL: No evidence of any muscle deficits on examination. NEUROLOGIC: No evidence of neurological deficits seen on exam. SKIN: Intact, warm to touch. Good cap refill. EXTREMITIES: No edema. Good range of motion throughout. LABORATORY DATA: Labs show white count 10.8, hemoglobin 12, hematocrit 37, and platelets of 195. Chemistry; sodium 143, potassium 4.1, chloride 109, bicarb 29, anion gap is 16, BUN is 13, creatinine is 1.1, glucose 134, calcium is 8.5. MICROBIOLOGY: None. IMAGING STUDIES: None. IMPRESSION: 1. Status post transurethral resection of the prostate. 2. History of schizophrenia. 3. Hypertension. 4. Hypothyroidism. PLAN: At this time, he continues to be a continuous bladder irrigation. His hemoglobin is very stable. We will continue to follow with Urology recommendations. He is doing well. He is alert, awake, and oriented on examination. All his home medications were resumed. Encourage ambulation. We will talk with Urology to see we can put him on anticoagulation with Lovenox for deep venous thrombosis prophylaxis. In the interim, he is on SHAHNAZ hoses. MD BOUCHRA Allison/[place] /[id number]
--- NOTE | 2019-08-22 20:10 | NUR ---
PATIENT RESTING IN BED AOX4, NO SIGNS OF DISTRESS NOTED. IV FLUIDS ARE RUNNING AT ORDERED RATE AND PATIENT VOICES NO PAIN AT THIS TIME. CONTINUOUS BLADDER IRRIGATION IS CURRENTLY IN USE AND IS PATENT AND FLOWING. INDWELLING CATHETER IS INTACT, REYES BAG HAS CLEAR AND ORANGE COLORED URINE. BED IS IN LOWEST POSITION, BOTH SIDE RAILS ARE UP, CALL LIGHT IS WITHIN EASY REACH, WILL CONTINUE TO MONITOR.
[2019-08-22] MEDS: LORAZEPAM 0.5 MG TAB PO SCH (20:12)
[2019-08-22] MEDS: NON-FORMULARY MEDICATION (Clozapine 200 MG) PO SCH (20:13)
--- NOTE | 2019-08-22 23:31 | NUR ---
PATIENT ACCIDENTLY DISLODGED IV FROM SITE. MADE AN ATTEMPT TO START NEW IV ACCESS AND PATIENT REFUSED FOR NEW ONE TO BE STARTED. PATIENT WAS EDUCATED ON THE IMPORTANCE OF A NEW IV ACCESS BUT STILL REFUSED. INFORMED DR. ELLISON IS WHO ENCOURAGED ME TO FURTHER EDUCATE PATIENT ABOUT THE USE OF IVS FOR EMERGENCY PURPOSES. PATIENT WAS FURTHER EDUCATED BUT STILL REFUSED, VOICING THAT HE THERE WAS NO NEED FOR ONE AND WAS LEAVING TOMORROW. PATIENT IS CURRENTLY AOX4, IN STABLE CONDITION. CONTINUOUS BLADDER IRRIGATION IS PATENT AND FLOWING. PATIENT DRINKING PLENTY OF FLUIDS AND AMBULATES. CALL LIGHT WITHIN REACH, WILL CONTINUE TO MONITOR.
[2019-08-23 00:24] VITALS: BP 129/64
[2019-08-23 04:00] VITALS: BP 117/64
[2019-08-23] MEDS: LEVOTHYROXINE SODIUM 75 MCG TAB PO SCH (05:40)
[2019-08-23 05:53] LABS: BASOPHILS % 0.2 % (0.0-1.0); HEMOGLOBIN 11.4 g/dL (14.0-18.0); LYMPHOCYTES # (AUTO) 2.6 (1.0-3.2); LYMPHOCYTES % 23.9 % (18.0-39.1); MEAN CORPUSCULAR HEMOGLOBIN 28.7 pg (28-32); MEAN CORPUSCULAR HGB CONC 30.8 g/dL (31-35); MEAN CORPUSCULAR VOLUME 93.2 fL (81-99); MONOCYTES # (AUTO) 0.8 (0.2-0.8); MONOCYTES % 7.6 % (4.4-11.3); NEUTROPHILS # (AUTO) 7.4 (2.1-6.9); PLATELET COUNT 196 x10e3/uL (140-360); RED BLOOD COUNT 3.97 x10e6/uL (4.3-5.7); RED CELL DISTRIBUTION WIDTH 13.8 % (11.7-14.4)
[2019-08-23 06:43] LABS: ANION GAP 11.9 mmol/L (8-16); BLOOD UREA NITROGEN 13 mg/dL (7-26); BUN/CREATININE RATIO 12 (6-25); CALCIUM 8.5 mg/dL (8.4-10.2); CARBON DIOXIDE 24 mmol/L (22-29); CHLORIDE 111 mmol/L (98-107); CREATININE, SERUM 1.06 mg/dL (0.72-1.25); EST GLOMERULAR FILTRATION RATE > 60 ML/MIN (60-); GLUCOSE 106 mg/dL (74-118); POTASSIUM 3.9 mmol/L (3.5-5.1); SODIUM 143 mmol/L (136-145)
[2019-08-23] MEDS: LISINOPRIL 10 MG TAB PO SCH (07:58)
[2019-08-23] MEDS: PHENAZOPYRIDINE HCL 100 MG TAB PO SCH ×2 (07:59→13:17)
[2019-08-23 08:02] VITALS: BP 131/70
[2019-08-23 11:41] VITALS: BP 139/69
--- NOTE | 2019-08-23 11:46 | NUR ---
ORDERS FOR HOME HEALTH FOR REYES CARE, IRRIGATION AND DC REYES ON MONDAY CHOICE LETTER SIGNED BY PT FOR [facility] PH: [phone] FAX: [phone] ORDERS TO ARRANGE HOME HEALTH CARE FOR REYES CARE, IRRIGATIONS AND DC REYES ON MONDAY CHOICE LETTER SIGNED BY PT FOR [facility] [phone] FAX: [phone] CHOICE LETTER TO CHART; COPY OF CHOICE LETTER IN PT'S CARE TRANSITION FOLDER IMM EXPLAINED TO PT, SIGNED BY PT AND PLACED IN CHART COPY OF IMM TO PT IN CARE TRANSITIONS FOLDER CM CALLED AND SPOKE WITH NATAN AT [facility] FAXED ORDERS CONFIRMATION REC'D
[2019-08-23] MEDS: CEFTRIAXONE SOD 1 GM/NS 50 ML 50 ML IV SCH (12:30)
[2019-08-23] MEDS: SODIUM CHLORIDE 0.9% 1000ML 1,000 ML IV SCH (13:00)
[2019-08-23] MEDS ORDERED: TYLENOL WITH C1 EACH PO (13:55)
--- NOTE | 2019-08-23 22:14 | Discharge Summary ---
FINAL DISCHARGE DIAGNOSES: 1. Status post transurethral resection of the prostate. 2. History of schizophrenia. 3. Hypertension. 4. Hypothyroidism. CONSULTANTS: Urology. PHYSICAL EXAMINATION: VITAL SIGNS: Temperature is 96.6, pulse 76, respiratory rate is 18, blood pressure 139/69, pulse ox 98% on room air. LABORATORY DATA: Labs show white count was 10.8, hemoglobin 11.4, hematocrit 37, platelets of 196. Chemistry; sodium 143, potassium 3.9, chloride 111, bicarb 24, anion gap of 11, BUN is 13, creatinine 1.06, glucose is 106. A1c 5.9, calcium is 8.5, magnesium is 1.7. Serology; coronavirus PCR negative. Microbiology; none. IMAGING STUDIES: A chest x-ray on 08/16/2019 shows no focal pneumonia, pulmonary edema. HOSPITAL COURSE: This is a 73-year-old male, who has a known history of BPH, comes in for an elective status post TURP procedure performed by Urology. The patient did well postoperatively. He was on the CBI. No evidence of hematuria. The patient maintained on IV antibiotic therapy. Of note, on 08/22/2019, the patient refused reinsertion of an IV and refused antibiotics. On the following day on 08/23/2019, the patient was doing well, was cleared for discharge by Urology. The patient will continue with the Marina catheter upon discharge with close followup in 7 to 10 days in his office. The patient was discharged on oral Ceftin antibiotics as well as oral pain control. The patient was stable prior to being discharged to home. He was asymptomatic. He has no complaints. He has no fever. The patient was very stable, had no other issues at this time. The patient was cleared for discharge by all consultants. On the day of discharge, vital signs were stable, labs reviewed and stable. The patient was seen and evaluated and examined thoroughly on the day of discharge. No other complaints. The patient verbalized understanding and agrees to plan of care to follow up as an outpatient with the primary care physician in 1 week and the urologist in 7 to 10 days. MEDICATIONS: See med reconciliation form. DISPOSITION: Home. CONDITION: Stable. DIET: Heart healthy. In the event of any worsening symptoms, the patient was advised to come back to the ED for further evaluation. Discharge summary took greater than 35 minutes. MD BOUCHRA Allison/[place] /[id number]
--- NOTE | 2019-08-29 14:44 | NUR ---
CALLED AND SPOKE WITH INTAKE AT [facility], LET THEM KNOW NO ONE HAS SHOWN UP TO SEE PATIENT. 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 SHE GOES ON TO STATE THAT SHE CALLED AND LEFT A VOICE MAIL THAT THEY WERE NOT IN NETWORK BUT DIDNT SPEAK WITH ANYONE. FAXED ORDER AND CLINICALS TO [facility] [phone] AND SPOKE WITH REP TO RETURN MY CALL ESCOBAR TO MAKE CERTAIN THAT PT IS SEEN. NOTIFIED DR FRANCO OF SITUATION.
== END 2019-08-23 15:06 | disposition home or self-care (01) | DRG 713 ==
LOC: OR 09:55 → PACU V 12:18 → MED/SURG 16:24
PROVIDERS: ADMIT Internal Medicine; ATTEND Internal Medicine
PROC: 0VB08ZZ Excision of Prostate, Via Natural or Artificial Opening Endoscopic (ICD-10-PCS; principal; 2019-08-21 12:30)
PROC: BT141ZZ Fluoroscopy of Kidneys, Ureters and Bladder using Low Osmolar Contrast (ICD-10-PCS; 2019-08-21 12:30)
DX: N40.0 Benign prostatic hyperplasia without lower urinary tract symptoms (principal); N13.8 Other obstructive and reflux uropathy; N39.0 Urinary tract infection, site not specified; E03.9 Hypothyroidism, unspecified; I10 Essential (primary) hypertension; F20.9 Schizophrenia, unspecified; K21.9 Gastro-esophageal reflux disease without esophagitis; F41.9 Anxiety disorder, unspecified; N40.1 Benign prostatic hyperplasia with lower urinary tract symptoms; N39.41 Urge incontinence; R33.8 Other retention of urine; R39.14 Feeling of incomplete bladder emptying; R35.1 Nocturia; Z83.3 Family history of diabetes mellitus; Z82.49 Family history of ischemic heart disease and other diseases of the circulatory system; Z87.440 Personal history of urinary (tract) infections; N31.2 Flaccid neuropathic bladder, not elsewhere classified; R97.20 Elevated prostate specific antigen [PSA]
CPT/HCPCS: 36415; 71046; 74420; 80048; 82948; 83036; 83735; 85025; 87635; 88305; J0696; J1100; J1170; J1580; J2001; J2175; J2250; J2405; J3010; J7030

== ENCOUNTER 2020-11-29 09:59 | Emergency (ER) | payer MEDICARE, OTHER ==
[~2020-11-29] VITALS: Ht 170.2 cm; Wt 79.4 kg
[2020-11-29] MEDS ORDERED: IBUPROFEN 600 MG TAB PO STA (10:24)
[2020-11-29] MEDS ORDERED: CEFDINIR300 MG PO (10:59)
[2020-11-29] MEDS ORDERED: TESSALON PERLE100 MG PO (11:00)
== END 2020-11-29 11:29 | disposition home or self-care (01) ==
LOC: FSED 10:23
DX: R50.9 Fever, unspecified (principal); J02.0 Streptococcal pharyngitis; J20.9 Acute bronchitis, unspecified; I10 Essential (primary) hypertension; E03.9 Hypothyroidism, unspecified; F20.9 Schizophrenia, unspecified
CPT/HCPCS: 71046; 83518; 87400; 99283

== ENCOUNTER 2022-08-19 14:37 | Emergency (ER) | payer MEDICARE, OTHER ==
[~2022-08-19] VITALS: Ht 170.2 cm; Wt 79.4 kg
[~2022-08-19 14:37] MED LIST changes: +TESSALON PERLE100 MG PO
[2022-08-19 15:48] LABS: BASOPHILS % 0.2 % (0.0-1.0); HEMATOCRIT 37.4 % (38.2-49.6); HEMOGLOBIN 11.9 g/dL (14.0-18.0); LYMPHOCYTES # (AUTO) 2.8 (1.0-3.2); LYMPHOCYTES % 24.1 % (18.0-39.1); MEAN CORPUSCULAR HEMOGLOBIN 29.2 pg (28-32); MEAN CORPUSCULAR HGB CONC 31.8 g/dL (31-35); MEAN CORPUSCULAR VOLUME 91.9 fL (81-99); MONOCYTES # (AUTO) 1.1 (0.2-0.8); MONOCYTES % 9.3 % (4.4-11.3); NEUTROPHILS # (AUTO) 7.7 (2.1-6.9); NEUTROPHILS % 66.1 % (38.7-80.0); PLATELET COUNT 216 x10e3/uL (140-360); RED BLOOD COUNT 4.07 x10e6/uL (4.3-5.7); RED CELL DISTRIBUTION WIDTH 14.1 % (11.7-14.4)
[2022-08-19 16:02] LABS: SALICYLATE < 5.0 mg/dL (0-30)
[2022-08-19 16:04] LABS: ALBUMIN 3.9 g/dL (3.5-5.0); ALBUMIN/GLOBULIN RATIO 1.2 (0.8-2.0); ANION GAP 13.9 mmol/L (8-16); CALCIUM 9.1 mg/dL (8.4-10.2); CREATININE, SERUM 1.02 mg/dL (0.72-1.25); POTASSIUM 3.9 mmol/L (3.5-5.1)
[2022-08-19 16:24] LABS: THYROID STIMULATING HORMONE 8.68 uIU/mL (0.350-4.940)
[2022-08-19] MEDS ORDERED: SODIUM CHLORIDE 0.9% 1000ML 1,000 ML IV STA (16:58)
[2022-08-19 18:01] LABS: CLARITY,URINE CLEAR (CLEAR); COLOR,URINE YELLOW (YELLOW); KETONES,URINE NEGATIVE (NEGATIVE); LEUKOCYTE ESTERASE ,URINE NEGATIVE (NEGATIVE); NITRITE,URINE POSITIVE (NEGATIVE); PROTEIN,URINE DIPSTICK NEGATIVE (NEGATIVE); URINE UROBILINOGEN 0.2 mg/dL (0.2 - 1)
[2022-08-19 18:03] LABS: AMPHETAMINES SCREEN,URINE NEGATIVE (NEGATIVE); BENZODIAZEPINES SCREEN,URINE NEGATIVE (NEGATIVE); PHENCYCLIDINE SCREEN,URINE NEGATIVE (NEGATIVE)
[2022-08-19 18:12] LABS: BACTERIA,URINE FEW /HPF; RBC,URINE 0-5 /HPF (0-5)
[2022-08-19] MEDS ORDERED: CEFUROXIME250 MG PO (18:31)
== END 2022-08-19 19:09 | disposition home or self-care (01) ==
LOC: ER 14:44
DX: F20.9 Schizophrenia, unspecified (principal); N39.0 Urinary tract infection, site not specified; E03.9 Hypothyroidism, unspecified; Z20.822 Contact with and (suspected) exposure to COVID-19
CPT/HCPCS: 36415; 80053; 80307; 80320; 80329 ×2; 81001; 84443; 85025; 93005; 99284; J7030; U0002